=== PATIENT | male | born 1965 | race Caucasian/White ===

== ENCOUNTER 2019-08-08 08:25 | Outpatient (CLI) | payer OTHER ==
[~2019-08-08 08:25] MED LIST: ATOR20TA37 PO; LOSA25TA25 PO
== END 2019-08-08 23:59 | disposition home or self-care (01) ==
LOC: RAD 08:25
PROVIDERS: ATTEND Urology
DX: C61 Malignant neoplasm of prostate (principal)
CPT/HCPCS: 51600; 74430; Q9958

== ENCOUNTER 2020-05-13 10:32 | Outpatient (CLI) | payer OTHER | END 2020-05-13 23:59 | disposition home or self-care (01) | LOC: RAD 10:32 | PROVIDERS: ATTEND Internal Medicine Cardiovascular Disease | DX: I82.432 Acute embolism and thrombosis of left popliteal vein (principal); I82.412 Acute embolism and thrombosis of left femoral vein; I26.09 Other pulmonary embolism with acute cor pulmonale | CPT/HCPCS: 71045; 78582; 93970; A9540; A9558 ==